=== PATIENT | male | born 1990 | race Hispanic/Latino ===

== ENCOUNTER 2023-05-07 19:10 | Inpatient (IN) | payer OTHER ==
[~2023-05-07] VITALS: Ht 175.3 cm; Wt 87.5 kg
[2023-05-07 19:47] LABS: BASOPHILS # (AUTO) 0.04 K/uL (0.00-0.20); BASOPHILS % (AUTO) 0.3 % (0.0-5.0); EOSINOPHILS # (AUTO) 0.01 K/uL (0.00-0.70); EOSINOPHILS % (AUTO) 0.1 % (0.0-8.0); HEMATOCRIT 34.5 % (42-54); IMMATURE GRANULOCYTE ABSOLUTE 0.06 K/uL (0-1); MEAN CORPUSCULAR HEMOGLOBIN 27.1 pg (27.0-33.0); MEAN CORPUSCULAR HGB CONC 31.9 g/dL (32.0-36.0); MONOCYTES # (AUTO) 1.3 K/uL (0.1-1.0); MONOCYTES % (AUTO) 8.2 % (3.0-13.0); NEUTROPHILS # (AUTO) 13.5 K/uL (1.8-7.7); PLATELET COUNT (AUTO) 507 K/uL (130-400); RED BLOOD CELL COUNT(AUTO) 4.06 MIL/uL (4.50-6.20); RED CELL DISTRIBUTION WIDTH 12.5 % (11.0-15.5); WHITE BLOOD COUNT (AUTO) 15.9 K/uL (4.8-10.8)
[2023-05-07] MEDS ORDERED: 0.9%NACL 1000ML 1,000 ML IV ONE (19:52)
[2023-05-07] MEDS ORDERED: 0.9%NACL 1000ML 1,000 ML IV STA (19:53)
[2023-05-07 19:56] LABS: CREATININE 1.1 mg/dL (0.5-1.5); POTASSIUM 3.7 mmol/L (3.5-5.1)
[2023-05-07 20:00] LABS: ALBUMIN 4.1 g/dL (3.5-5.0); BILIRUBIN,TOTAL 0.7 mg/dL (0.2-1.0); TOTAL PROTEIN, SERUM 7.9 g/dL (6.0-8.3)
[2023-05-07] MEDS ORDERED: KETOROLAC 15MG/ML VIAL (15MG/ML) IV ONE (21:00)
[2023-05-07] MEDS ORDERED: IOHEXOL 350 MG/ML 100ML INFUS..BTL IV ONE (21:07)
[2023-05-07 21:33] LABS: APPEARANCE,URINE CLEAR (CLEAR); BILIRUBIN,URINE NEGATIVE (NEGATIVE); COLOR,URINE LIGHT-YELLOW (YELLOW); GLUCOSE, URINE (UA) NEGATIVE (NEGATIVE); KETONES,URINE 60 mg/dL (NEGATIVE); LEUKOCYTE ESTERASE ,URINE NEGATIVE Leu/uL (NEGATIVE); NITRATE,URINE NEGATIVE (NEGATIVE); OCCULT BLOOD,URINE NEGATIVE (NEGATIVE); PH,URINE 5.5 (5.0-8.0); PROTEIN,URINE NEGATIVE (NEGATIVE); UROBILINOGEN,URINE 0.2 mg/dL (0.2-1.0)
[2023-05-07 21:36] LABS: ADD UA MICROSCOPIC YES
[2023-05-07 21:48] LABS: BACTERIA,URINE RARE /HPF (None Seen); MUCUS,URINE FEW LPF (None Seen); RBC,URINE 0-1 /HPF (0-1); SQUAMOUS EPITHELIAL CELL,UR RARE /HPF (0-2); WBC,URINE 0-1 /HPF (0-1)
[2023-05-07] MEDS ORDERED: MORPHINE 4 MG SYG IVP ONE (22:30)
[2023-05-07] MEDS ORDERED: ONDANSETRON 4MG INJ IVP ONE (22:30)
[2023-05-07] MEDS ORDERED: MORPHINE 2 MG SYG IV PRN (23:00)
[2023-05-07] MEDS ORDERED: POTASSIUM CHLORIDE 20MEQ/100ML 100 ML IV PRN (23:00)
[2023-05-07] MEDS ORDERED: ONDANSETRON 4MG INJ IV PRN (23:00)
[2023-05-07] MEDS ORDERED: ACETAMINOPHEN 650 MG SUPPOSITORY RC PRN (23:00)
[2023-05-07] MEDS ORDERED: MAGNESIUM 2GM PREMIX 50ML 50 ML IV PRN (23:00)
[2023-05-07] MEDS: LACTATED RINGERS 1000ML 1,000 ML IV SCH (23:03)
[2023-05-08] VITALS (15 sets, daily range): BP systolic 122–135; BP diastolic 67–87; PULSE 80–118; RESP 18–20; O2SAT 96–99
[2023-05-08] MEDS ORDERED: DICY-20 PO (01:38)
[2023-05-08] MEDS: LACTATED RINGERS 1000ML 1,000 ML IV SCH ×2 (01:45→18:22)
[2023-05-08] MEDS: HYDROMORPHONE 1 MG INJ IV PRN ×3 (01:45→15:38)
[2023-05-08 03:53] LABS: BASOPHILS # (AUTO) 0.03 K/uL (0.00-0.20); BASOPHILS % (AUTO) 0.3 % (0.0-5.0); EOSINOPHILS # (AUTO) 0.06 K/uL (0.00-0.70); EOSINOPHILS % (AUTO) 0.6 % (0.0-8.0); HEMATOCRIT 29.2 % (42-54); IMMATURE GRANULOCYTE ABSOLUTE 0.05 K/uL (0-1); LYMPHOCYTES # (AUTO) 1.7 K/uL (1.0-4.8); LYMPHOCYTES % (AUTO) 15.2 % (21.0-51.0); MEAN CORPUSCULAR HEMOGLOBIN 27.1 pg (27.0-33.0); MEAN CORPUSCULAR HGB CONC 31.5 g/dL (32.0-36.0); MEAN CORPUSCULAR VOLUME 85.9 fL (79-99); MONOCYTES # (AUTO) 1.5 K/uL (0.1-1.0); MONOCYTES % (AUTO) 13.7 % (3.0-13.0); NEUTROPHILS # (AUTO) 7.6 K/uL (1.8-7.7); NEUTROPHILS % (AUTO) 69.7 % (40.0-77.0); PLATELET COUNT (AUTO) 387 K/uL (130-400); RED CELL DISTRIBUTION WIDTH 12.7 % (11.0-15.5); WHITE BLOOD COUNT (AUTO) 10.9 K/uL (4.8-10.8)
[2023-05-08 04:08] LABS: CREATININE 1.1 mg/dL (0.5-1.5); INR 0.98 (0.85-1.15); PHOSPHORUS 5.2 mg/dL (2.5-4.9); POTASSIUM 4.4 mmol/L (3.5-5.1); PROTHROMBIN TIME 11.4 SEC (9.6-11.6)
[2023-05-08 04:09] LABS: PARTIAL THROMBOPLASTIN TIME 30.5 SEC (26.3-35.5)
[2023-05-08] MEDS: ZOSYN 3.375GM+NS 50ML 50 ML IV SCH ×3 (04:50→20:57)
[2023-05-08] MEDS: FAMOTIDINE 20MG VIAL IV SCH ×2 (08:37→20:57)
[2023-05-08] MEDS ORDERED: MIDAZOLAM HCL 1 MG/ML 2ML VIAL ONE (12:34)
[2023-05-08] MEDS ORDERED: FENTANYL CITRATE PF 50 MCG/1 ML 2ML VIAL ONE (12:34)
[2023-05-08] MEDS: KETOROLAC 30MG VIAL (30MG/ML) IVP PRN (18:18)
[2023-05-08] MEDS ORDERED: HYDROMORPHONE 1 MG INJ IV PRN (19:30)
[2023-05-09] VITALS (8 sets, daily range): BP systolic 114–130; BP diastolic 61–75; PULSE 82–100; RESP 18–22; O2SAT 97–98
[2023-05-09] MEDS: ZOSYN 3.375GM+NS 50ML 50 ML IV SCH ×3 (04:12→20:43)
[2023-05-09 07:19] LABS: BASOPHILS # (AUTO) 0.02 K/uL (0.00-0.20); BASOPHILS % (AUTO) 0.3 % (0.0-5.0); EOSINOPHILS # (AUTO) 0.02 K/uL (0.00-0.70); EOSINOPHILS % (AUTO) 0.3 % (0.0-8.0); IMMATURE GRANULOCYTE ABSOLUTE 0.01 K/uL (0-1); LYMPHOCYTES # (AUTO) 0.9 K/uL (1.0-4.8); LYMPHOCYTES % (AUTO) 11.8 % (21.0-51.0); MEAN CORPUSCULAR HEMOGLOBIN 27.4 pg (27.0-33.0); MEAN CORPUSCULAR HGB CONC 31.4 g/dL (32.0-36.0); MEAN CORPUSCULAR VOLUME 87.3 fL (79-99); MONOCYTES # (AUTO) 1.1 K/uL (0.1-1.0); NEUTROPHILS # (AUTO) 5.4 K/uL (1.8-7.7); NEUTROPHILS % (AUTO) 72.5 % (40.0-77.0); PLATELET COUNT (AUTO) 349 K/uL (130-400); RED BLOOD CELL COUNT(AUTO) 3.32 MIL/uL (4.50-6.20); RED CELL DISTRIBUTION WIDTH 12.8 % (11.0-15.5); WHITE BLOOD COUNT (AUTO) 7.5 K/uL (4.8-10.8)
[2023-05-09] MEDS: KETOROLAC 30MG VIAL (30MG/ML) IVP PRN ×2 (07:27→18:54)
[2023-05-09] MEDS: LACTATED RINGERS 1000ML 1,000 ML IV SCH (07:27)
[2023-05-09 07:40] LABS: BILIRUBIN,TOTAL 0.5 mg/dL (0.2-1.0); CREATININE 1.1 mg/dL (0.5-1.5); POTASSIUM 3.6 mmol/L (3.5-5.1); TOTAL PROTEIN, SERUM 6.2 g/dL (6.0-8.3)
[2023-05-09] MEDS ORDERED: ONDANSETRON 4MG INJ IVP PRN (09:00)
[2023-05-09] MEDS: FAMOTIDINE 20MG VIAL IV SCH ×2 (09:31→20:43)
[2023-05-09] MEDS ORDERED: IOHEXOL-350 50ML VIAL IV ONE (12:14)
[2023-05-10] VITALS (8 sets, daily range): BP systolic 111–120; BP diastolic 57–73; PULSE 74–91; RESP 16–18; O2SAT 96–98
[2023-05-10] MEDS: ZOSYN 3.375GM+NS 50ML 50 ML IV SCH ×3 (04:36→20:47)
[2023-05-10 05:31] LABS: POTASSIUM 3.6 mmol/L (3.5-5.1)
[2023-05-10] MEDS: FAMOTIDINE 20MG VIAL IV SCH ×2 (09:09→20:47)
[2023-05-10] MEDS: KETOROLAC 30MG VIAL (30MG/ML) IVP PRN ×2 (09:59→20:52)
[2023-05-11] VITALS (7 sets, daily range): BP systolic 113–136; BP diastolic 62–82; PULSE 80–99; RESP 17–19; O2SAT 98–100
[2023-05-11] MEDS: ZOSYN 3.375GM+NS 50ML 50 ML IV SCH ×3 (04:30→21:49)
[2023-05-11] MEDS ORDERED: KCL 20 MEQ ERTAB PO ONE (08:30)
[2023-05-11] MEDS: FAMOTIDINE 20MG VIAL IV SCH ×2 (10:14→21:49)
[2023-05-11] MEDS ORDERED: DEXTROSE 5 %-0.45 % NACL 1,000 ML IV SCH (13:00)
[2023-05-11] MEDS ORDERED: IOHEXOL 350 MG/ML 100ML INFUS..BTL IV ONE (13:57)
[2023-05-11] MEDS: KETOROLAC 30MG VIAL (30MG/ML) IVP PRN (21:49)
[2023-05-12 03:43] LABS: HEMATOCRIT 26.4 % (42-54); MEAN CORPUSCULAR HEMOGLOBIN 26.8 pg (27.0-33.0); MEAN CORPUSCULAR HGB CONC 31.8 g/dL (32.0-36.0); MEAN CORPUSCULAR VOLUME 84.3 fL (79-99); RED BLOOD CELL COUNT(AUTO) 3.13 MIL/uL (4.50-6.20); RED CELL DISTRIBUTION WIDTH 12.9 % (11.0-15.5); WHITE BLOOD COUNT (AUTO) 4.9 K/uL (4.8-10.8)
[2023-05-12 03:57] LABS: ALBUMIN 2.6 g/dL (3.5-5.0); BILIRUBIN,TOTAL 0.2 mg/dL (0.2-1.0); CREATININE 1.1 mg/dL (0.5-1.5); POTASSIUM 3.5 mmol/L (3.5-5.1); TOTAL PROTEIN, SERUM 5.6 g/dL (6.0-8.3)
[2023-05-12 04:23] VITALS: BP 113/66; PULSE 72; RESP 18
[2023-05-12] MEDS: ZOSYN 3.375GM+NS 50ML 50 ML IV SCH ×2 (05:26→12:54)
[2023-05-12 08:00] VITALS: BP 130/74; PULSE 94; RESP 18; O2SAT 99
[2023-05-12] MEDS ORDERED: KCL 20 MEQ ERTAB PO ONE (08:00)
[2023-05-12 08:04] VITALS: BP 143/71; PULSE 67; RESP 17
[2023-05-12] MEDS: FAMOTIDINE 20MG VIAL IV SCH (08:38)
[2023-05-12 12:00] VITALS: BP 126/80; PULSE 85; RESP 17
[2023-05-12 15:44] VITALS: BP 122/65; PULSE 78; RESP 17
[2023-05-12 19:00] VITALS: BP 115/77; PULSE 76; RESP 17
[2023-05-13] MEDS ORDERED: POLYETHYLENE GLYCOL 3350 17 GM POWD.PACK PO SCH (09:00)
== END 2023-05-12 21:22 | disposition short-term general hospital (02) | DRG 841 ==
LOC: EDH 19:10 → EDHIP 19:11 → 3BH 05-08 01:02
PROVIDERS: ADMIT Internal Medicine; ATTEND Internal Medicine
PROC: 0JB83ZX Excision of Abdomen Subcutaneous Tissue and Fascia, Percutaneous Approach, Diagnostic (ICD-10-PCS; principal; 2023-05-08)
DX: C85.83 Other specified types of non-Hodgkin lymphoma, intra-abdominal lymph nodes (principal); K56.600 Partial intestinal obstruction, unspecified as to cause; D64.9 Anemia, unspecified; D72.829 Elevated white blood cell count, unspecified; F17.290 Nicotine dependence, other tobacco product, uncomplicated; Z59.7 Insufficient social insurance and welfare support
CPT/HCPCS: 36415; 49180; 71045; 71260; 74018; 74174; 74177; 76942; 80048; 80053; 81001; 82150; 82550; 83605; 83690; 83735; 84100; 84145; 85025; 85027; 85610; 85730; 86850; 86900; 86901; 87040; 93005; 99152; G0378; J1170; J1885; J2250; J2270; J2405; J2543; J3010; J3490; J7030; J7042; J7120; Q9967; C2615; G0500